=== PATIENT | male | born 1965 | race Caucasian/White ===

== ENCOUNTER 2021-11-15 13:24 | Inpatient (IN) | payer BC ==
[~2021-11-15] VITALS: Ht 170.2 cm; Wt 74.8 kg
[2021-11-15 13:24] VITALS: BP_SYST 212
[2021-11-15] MEDS ORDERED: MORPHINE 4 MG INJ. 4 MG/ML VIAL IVP ONE (14:15)
[2021-11-15] MEDS ORDERED: ASPIRIN 81 MG TAB.CHEW PO ONE (14:15)
[2021-11-15] MEDS ORDERED: ONDANSETRON HCL 4 MG/2 ML VIAL IVP ONE (14:15)
[2021-11-15] MEDS ORDERED: NITROGLYCERIN 1 INCH (GM) OINT. TD ONE (14:15)
[2021-11-15 14:34] LABS: BASOPHILS % (AUTO) 0.3 % (0.0-2.0); HEMATOCRIT 47.8 % (36-54); HEMOGLOBIN 16.6 g/dL (14.0-18.0); LYMPHOCYTES # (AUTO) 2.4 K/uL (1.0-5.5); LYMPHOCYTES % (AUTO) 14.6 % (20.5-51.5); MEAN CORPUSCULAR HEMOGLOBIN 31 pg (27-31); MEAN CORPUSCULAR HGB CONC 35 % (32-36); MEAN CORPUSCULAR VOLUME 90 fL (79.0-98.0); MONOCYTES # (AUTO) 1.6 K/uL (0.0-1.0); MONOCYTES % (AUTO) 9.8 % (1.7-9.3); NEUTROPHILS # (AUTO) 12.3 K/uL (1.8-7.7); NEUTROPHILS % (AUTO) 75.3 % (40.0-70.0); PLATELET COUNT (AUTO) 304 K/uL (130-430); RED BLOOD CELL COUNT(AUTO) 5.33 MIL/uL (4.2-6.2); RED CELL DISTRIBUTION WIDTH 13.3 % (9.0-15.0); WHITE BLOOD COUNT (AUTO) 16.4 K/uL (4.8-10.8)
[2021-11-15 14:43] LABS: ANION GAP 12 (5-15); CALCIUM 9.4 mg/dL (8.4-11.0); CHLORIDE 94 mmol/L (98-107); CREATININE 1.14 mg/dL (0.55-1.30); GLUCOSE 312 mg/dL (70-99); POTASSIUM 3.9 mmol/L (3.5-5.1); UREA NITROGEN, BLOOD 17 mg/dL (8-21)
[2021-11-15 14:45] LABS: GFR AFRICAN AMERICAN 86 mL/min (>90)
[2021-11-15 14:56] LABS: ALANINE AMINOTRANSFERASE 31 U/L (12-78); ALBUMIN 3.7 g/dL (3.4-4.8); ASPARTATE AMINOTRANSFERASE 18 U/L (10-37); TOTAL BILIRUBIN 1.5 mg/dL (0.0-1.0)
[2021-11-15] MEDS ORDERED: NACL 0.9% 1,000 ML IV ONE (16:30)
[2021-11-15] MEDS ORDERED: cloNIDine HCL 0.1 MG TABLET PO PRN (17:30)
[2021-11-15] MEDS ORDERED: PANTOPRAZOLE SODIUM 40 MG TAB PO ONE (17:30)
[2021-11-15] MEDS ORDERED: DEXTROSE 50% JECT 50 ML DISP.SYRIN IVP PRN (17:30)
[2021-11-15] MEDS ORDERED: IPRATROPIUM/ALBUTEROL SULFATE 3 ML AMPUL.NEB (DUONEB) INH PRN (17:30)
[2021-11-15 17:31] VITALS: BP_SYST 125
[2021-11-15] MEDS: NACL 0.9% 1,000 ML IV SCH (18:30)
[2021-11-15] MEDS: LACTOBACILLUS RHAMNOSUS GG 1 CAP CAPSULE PO SCH (23:21)
[2021-11-15] MEDS: INSULIN REGULAR, HUMAN 100 UNITS/ML, 3 ML VIAL (humuLIN R) SUBCUT PRN (23:36)
[2021-11-16] MEDS: ACETAMINOPHEN 325 MG TABLET PO PRN ×3 (01:00→21:27)
[2021-11-16] MEDS: NACL 0.9% 1,000 ML IV SCH ×3 (06:16→21:30)
[2021-11-16 06:25] LABS: CALCIUM 8.1 mg/dL (8.4-11.0); CREATININE 1.04 mg/dL (0.55-1.30); POTASSIUM 3.9 mmol/L (3.5-5.1)
[2021-11-16 06:49] LABS: ALBUMIN 2.6 g/dL (3.4-4.8); TOTAL BILIRUBIN 1.2 mg/dL (0.0-1.0)
[2021-11-16 06:58] LABS: BASOPHILS % (AUTO) 0.1 % (0.0-2.0); HEMATOCRIT 40.2 % (36-54); HEMOGLOBIN 14.3 g/dL (14.0-18.0); LYMPHOCYTES # (AUTO) 0.9 K/uL (1.0-5.5); LYMPHOCYTES % (AUTO) 4.5 % (20.5-51.5); MEAN CORPUSCULAR HEMOGLOBIN 32 pg (27-31); MEAN CORPUSCULAR HGB CONC 35 % (32-36); MEAN CORPUSCULAR VOLUME 89 fL (79.0-98.0); MONOCYTES # (AUTO) 2.2 K/uL (0.0-1.0); MONOCYTES % (AUTO) 10.2 % (1.7-9.3); NEUTROPHILS # (AUTO) 18.1 K/uL (1.8-7.7); NEUTROPHILS % (AUTO) 85.2 % (40.0-70.0); PLATELET COUNT (AUTO) 240 K/uL (130-430); RED CELL DISTRIBUTION WIDTH 12.9 % (9.0-15.0); WHITE BLOOD COUNT (AUTO) 21.2 K/uL (4.8-10.8)
[2021-11-16 08:00] VITALS: BP_SYST 129
[2021-11-16] MEDS: ASPIRIN 81 MG TABLET(ECOTRIN) PO SCH (09:38)
[2021-11-16] MEDS: PANTOPRAZOLE SODIUM 40 MG TAB PO SCH (09:39)
[2021-11-16] MEDS: LACTOBACILLUS RHAMNOSUS GG 1 CAP CAPSULE PO SCH ×2 (09:40→21:13)
[2021-11-16] MEDS: INSULIN REGULAR, HUMAN 100 UNITS/ML, 3 ML VIAL (humuLIN R) SUBCUT PRN ×4 (09:44→21:30)
[2021-11-16 11:42] VITALS: BP_SYST 131
[2021-11-16 14:35] LABS: BILIRUBIN,URINE NEGATIVE (NEGATIVE); BLOOD, URINE NEGATIVE (NEGATIVE); CLARITY/URINE CLEAR (CLEAR); GLUCOSE,URINE 2+ (NEGATIVE); KETONES,URINE 1+ (NEGATIVE); LEUKOCYTE ESTERASE ,URINE NEGATIVE (NEGATIVE); NITRITE, URINE NEGATIVE (NEGATIVE); PROTEIN URINE 1+ (NEGATIVE)
[2021-11-16 14:42] LABS: COLOR,URINE AMBER (YELLOW)
[2021-11-16 14:43] LABS: BACTERIA,URINE FEW /HPF (None Seen); HYALINE CASTS, URINE 0-10 /LPF (None Seen); MUCUS,URINE 2+ /LPF (None Seen); RBC,URINE NONE SEEN /HPF (0-3); WBC,URINE 0-3 /HPF (0-3)
[2021-11-16 15:34] VITALS: BP_SYST 130
[2021-11-16] MEDS ORDERED: cefTRIAXone 1 GM IVPB PREMIX 50 ML IV SCH (19:00)
[2021-11-16 20:00] VITALS: BP_SYST 144
[2021-11-16] MEDS: LORazepam 1 MG TABLET PO PRN (21:26)
[2021-11-17 01:00] VITALS: BP_SYST 137
[2021-11-17] MEDS: INSULIN REGULAR, HUMAN 100 UNITS/ML, 3 ML VIAL (humuLIN R) SUBCUT PRN ×4 (06:48→21:33)
[2021-11-17] MEDS: NACL 0.9% 1,000 ML IV SCH (06:51)
[2021-11-17 06:55] LABS: HEMATOCRIT 41.7 % (36-54); HEMOGLOBIN 14.5 g/dL (14.0-18.0); MEAN CORPUSCULAR HEMOGLOBIN 31 pg (27-31); MEAN CORPUSCULAR HGB CONC 35 % (32-36); MEAN CORPUSCULAR VOLUME 90 fL (79.0-98.0); PLATELET COUNT (AUTO) 254 K/uL (130-430); RED BLOOD CELL COUNT(AUTO) 4.62 MIL/uL (4.2-6.2); RED CELL DISTRIBUTION WIDTH 13.2 % (9.0-15.0); WHITE BLOOD COUNT (AUTO) 23.9 K/uL (4.8-10.8)
[2021-11-17 07:43] LABS: LYMPHOCYTES % (MANUAL) 4 % (20-46)
[2021-11-17 07:44] LABS: ATYPICAL LYMPHOCYTES % 9 % (0-0); BASOPHILS % (MANUAL) 0 % (0-2); EOSINOPHILS % (MANUAL) 0 % (0-7); MONOCYTES % (MANUAL) 0 % (0-11)
[2021-11-17 07:46] LABS: ALBUMIN 2.2 g/dL (3.4-4.8); CALCIUM 8.5 mg/dL (8.4-11.0); CREATININE 0.91 mg/dL (0.55-1.30); POTASSIUM 3.4 mmol/L (3.5-5.1); TOTAL BILIRUBIN 0.7 mg/dL (0.0-1.0)
[2021-11-17 08:00] VITALS: BP_SYST 160
[2021-11-17] MEDS: LACTOBACILLUS RHAMNOSUS GG 1 CAP CAPSULE PO SCH ×2 (09:15→21:20)
[2021-11-17] MEDS: ASPIRIN 81 MG TABLET(ECOTRIN) PO SCH (09:15)
[2021-11-17] MEDS: LORazepam 1 MG TABLET PO PRN (09:16)
[2021-11-17] MEDS: PANTOPRAZOLE SODIUM 40 MG TAB PO SCH (09:16)
[2021-11-17] MEDS: ACETAMINOPHEN 325 MG TABLET PO PRN (09:17)
[2021-11-17 11:25] VITALS: BP_SYST 133
[2021-11-17] MEDS: PIPERACILLIN/TAZO 4.5GM/DEX-IS 100 ML IV SCH ×2 (14:40→21:19)
[2021-11-17] MEDS: VANCOMYCIN HCL 1,250 MG in NS 250 ML IV SCH (15:00)
[2021-11-17] MEDS: METHYLPREDNISOLONE SOD SUCC 40 MG/ML VIAL IVP SCH ×2 (15:19→21:21)
[2021-11-17 15:24] VITALS: BP_SYST 149
[2021-11-17] MEDS ORDERED: POTASSIUM CHLORIDE 20 MEQ TAB.PRT.SR PO ONE (17:00)
[2021-11-17] MEDS ORDERED: ASCORBIC ACID 500 MG TABLET PO ONE (17:15)
[2021-11-17] MEDS ORDERED: MULTIVITS,CA,MINERALS/IRON/FA 1 TABLET PO ONE (17:15)
[2021-11-17] MEDS ORDERED: CHOLECALCIFEROL (VITAMIN D3) 5,000 UNIT TABLET PO ONE (17:15)
[2021-11-17] MEDS ORDERED: MAGNESIUM OXIDE 400 MG TABLET PO ONE (17:15)
[2021-11-17] MEDS ORDERED: IPRATROPIUM/ALBUTEROL SULFATE 3 ML AMPUL.NEB (DUONEB) INH SCH (17:30)
[2021-11-17 20:00] VITALS: BP_SYST 136
[2021-11-17] MEDS: PROMETHAZINE-DM 6.25 MG-15 MG/5 ML UDC PO PRN (21:19)
[2021-11-17] MEDS: ASCORBIC ACID 500 MG TABLET PO SCH (21:20)
[2021-11-17] MEDS: MAGNESIUM OXIDE 400 MG TABLET PO SCH (21:20)
[2021-11-17] MEDS: TEMAZEPAM 15 MG CAPSULE PO PRN (21:21)
[2021-11-18 01:00] VITALS: BP_SYST 138
[2021-11-18] MEDS ORDERED: VANCOMYCIN HCL 500 MG/VIAL IV ONE (02:23)
[2021-11-18] MEDS ORDERED: VANCOMYCIN HCL 1000 MG/VIAL IV ONE (02:23)
[2021-11-18] MEDS: NACL 0.9% 1,000 ML IV SCH ×2 (02:50→17:52)
[2021-11-18] MEDS: VANCOMYCIN HCL 1,250 MG in NS 250 ML IV SCH (02:51)
[2021-11-18] MEDS: METHYLPREDNISOLONE SOD SUCC 40 MG/ML VIAL IVP SCH ×3 (05:46→21:24)
[2021-11-18] MEDS: PIPERACILLIN/TAZO 4.5GM/DEX-IS 100 ML IV SCH ×3 (05:49→21:24)
[2021-11-18] MEDS: INSULIN REGULAR, HUMAN 100 UNITS/ML, 3 ML VIAL (humuLIN R) SUBCUT PRN ×4 (05:59→20:59)
[2021-11-18 08:00] VITALS: BP_SYST 154
[2021-11-18] MEDS: ASCORBIC ACID 500 MG TABLET PO SCH ×2 (08:18→20:53)
[2021-11-18] MEDS: PANTOPRAZOLE SODIUM 40 MG TAB PO SCH (08:19)
[2021-11-18] MEDS: POTASSIUM CHLORIDE 20 MEQ TAB.PRT.SR PO SCH (08:19)
[2021-11-18] MEDS: MULTIVITS,CA,MINERALS/IRON/FA 1 TABLET PO SCH (08:19)
[2021-11-18] MEDS: LACTOBACILLUS RHAMNOSUS GG 1 CAP CAPSULE PO SCH ×2 (08:19→20:53)
[2021-11-18] MEDS: MAGNESIUM OXIDE 400 MG TABLET PO SCH ×2 (08:20→20:53)
[2021-11-18] MEDS: ASPIRIN 81 MG TABLET(ECOTRIN) PO SCH (08:20)
[2021-11-18] MEDS: CHOLECALCIFEROL (VITAMIN D3) 5,000 UNIT TABLET PO SCH (08:20)
[2021-11-18] MEDS ORDERED: THIAMINE HCL 100 MG TABLET GT SCH (09:00)
[2021-11-18 11:30] VITALS: BP_SYST 137
[2021-11-18 15:28] VITALS: BP_SYST 142
[2021-11-18 16:01] LABS: HEMOGLOBIN 14.6 g/dL (14.0-18.0)
[2021-11-18 16:09] LABS: HEMATOCRIT 42.7 % (36-54); MEAN CORPUSCULAR HEMOGLOBIN 31 pg (27-31); MEAN CORPUSCULAR HGB CONC 34 % (32-36); MEAN CORPUSCULAR VOLUME 90 fL (79.0-98.0); PLATELET COUNT (AUTO) 321 K/uL (130-430); RED BLOOD CELL COUNT(AUTO) 4.77 MIL/uL (4.2-6.2); RED CELL DISTRIBUTION WIDTH 13.2 % (9.0-15.0)
[2021-11-18 16:10] VITALS: BP_SYST 142
[2021-11-18 16:16] LABS: WHITE BLOOD COUNT (AUTO) 29.2 K/uL (4.8-10.8)
[2021-11-18] MEDS ORDERED: GLIP5TAB26 PO (17:06)
[2021-11-18] MEDS ORDERED: METF-518 PO (17:06)
[2021-11-18 17:21] LABS: LYMPHOCYTES % (MANUAL) 3 % (20-46); MONOCYTES % (MANUAL) 1 % (0-11)
[2021-11-18 17:57] LABS: ERYTHROCYTE SEDIMENTATION RATE 71 MM/HR (0-15)
[2021-11-18 20:00] VITALS: BP_SYST 154
[2021-11-18] MEDS: LORazepam 1 MG TABLET PO PRN (21:32)
[2021-11-18] MEDS: ACETAMINOPHEN 325 MG TABLET PO PRN (21:33)
[2021-11-19] VITALS: BP_SYST 130
[2021-11-19] MEDS: NACL 0.9% 1,000 ML IV SCH (05:53)
[2021-11-19] MEDS: METHYLPREDNISOLONE SOD SUCC 40 MG/ML VIAL IVP SCH (05:54)
[2021-11-19] MEDS: PIPERACILLIN/TAZO 4.5GM/DEX-IS 100 ML IV SCH ×3 (05:58→20:20)
[2021-11-19] MEDS: INSULIN REGULAR, HUMAN 100 UNITS/ML, 3 ML VIAL (humuLIN R) SUBCUT PRN ×4 (06:03→21:14)
[2021-11-19 07:16] LABS: BASOPHILS # (AUTO) 0.1 K/uL (0.0-0.2); BASOPHILS % (AUTO) 0.3 % (0.0-2.0); EOSINOPHILS % (AUTO) 0.1 % (0.0-4.0); HEMATOCRIT 42.5 % (36-54); HEMOGLOBIN 14.4 g/dL (14.0-18.0); LYMPHOCYTES % (AUTO) 3.3 % (20.5-51.5); MEAN CORPUSCULAR HEMOGLOBIN 31 pg (27-31); MEAN CORPUSCULAR HGB CONC 34 % (32-36); MEAN CORPUSCULAR VOLUME 90 fL (79.0-98.0); MONOCYTES # (AUTO) 2.2 K/uL (0.0-1.0); MONOCYTES % (AUTO) 7.3 % (1.7-9.3); NEUTROPHILS # (AUTO) 26.5 K/uL (1.8-7.7); PLATELET COUNT (AUTO) 299 K/uL (130-430); RED BLOOD CELL COUNT(AUTO) 4.72 MIL/uL (4.2-6.2); RED CELL DISTRIBUTION WIDTH 13.2 % (9.0-15.0); WHITE BLOOD COUNT (AUTO) 29.8 K/uL (4.8-10.8)
[2021-11-19 08:00] VITALS: BP_SYST 142
[2021-11-19 08:11] LABS: CALCIUM 8.6 mg/dL (8.4-11.0); CREATININE 0.8 mg/dL (0.55-1.30); POTASSIUM 4.6 mmol/L (3.5-5.1)
[2021-11-19] MEDS: ASCORBIC ACID 500 MG TABLET PO SCH ×2 (08:49→20:19)
[2021-11-19] MEDS: ASPIRIN 81 MG TABLET(ECOTRIN) PO SCH (08:50)
[2021-11-19] MEDS: CHOLECALCIFEROL (VITAMIN D3) 5,000 UNIT TABLET PO SCH (08:50)
[2021-11-19] MEDS: PANTOPRAZOLE SODIUM 40 MG TAB PO SCH (08:50)
[2021-11-19] MEDS: MULTIVITS,CA,MINERALS/IRON/FA 1 TABLET PO SCH (08:50)
[2021-11-19] MEDS: LACTOBACILLUS RHAMNOSUS GG 1 CAP CAPSULE PO SCH ×2 (08:50→20:19)
[2021-11-19] MEDS: MAGNESIUM OXIDE 400 MG TABLET PO SCH ×2 (08:50→20:19)
[2021-11-19] MEDS: FOLIC ACID 1 MG TABLET PO SCH (08:50)
[2021-11-19] MEDS: THIAMINE HCL 100 MG TABLET PO SCH (08:50)
[2021-11-19] MEDS: glipiZIDE XL 5 MG TAB ( GLUCOTROL XL) PO SCH (08:50)
[2021-11-19] MEDS: POTASSIUM CHLORIDE 20 MEQ TAB.PRT.SR PO SCH (08:51)
[2021-11-19] MEDS: LOSARTAN POTASSIUM 25 MG TABLET PO SCH (08:51)
[2021-11-19 11:24] VITALS: BP_SYST 140
[2021-11-19 15:34] VITALS: BP_SYST 136
[2021-11-19 20:00] VITALS: BP_SYST 133
[2021-11-20] VITALS: BP_SYST 139
[2021-11-20] MEDS: PIPERACILLIN/TAZO 4.5GM/DEX-IS 100 ML IV SCH ×3 (05:04→19:53)
[2021-11-20 07:39] LABS: BASOPHILS % (AUTO) 0.1 % (0.0-2.0); EOSINOPHILS % (AUTO) 0.1 % (0.0-4.0); HEMOGLOBIN 14.8 g/dL (14.0-18.0); LYMPHOCYTES # (AUTO) 1.5 K/uL (1.0-5.5); MEAN CORPUSCULAR HEMOGLOBIN 31 pg (27-31); MEAN CORPUSCULAR HGB CONC 34 % (32-36); MEAN CORPUSCULAR VOLUME 90 fL (79.0-98.0); NEUTROPHILS # (AUTO) 21.7 K/uL (1.8-7.7); PLATELET COUNT (AUTO) 319 K/uL (130-430); RED BLOOD CELL COUNT(AUTO) 4.77 MIL/uL (4.2-6.2); RED CELL DISTRIBUTION WIDTH 13.3 % (9.0-15.0); WHITE BLOOD COUNT (AUTO) 25.3 K/uL (4.8-10.8)
[2021-11-20 09:07] VITALS: BP_SYST 151
[2021-11-20 09:21] LABS: NEUTROPHILS % (AUTO) 85.8 % (40.0-70.0)
[2021-11-20] MEDS: NACL 0.9% 1,000 ML IV SCH (10:02)
[2021-11-20] MEDS: POTASSIUM CHLORIDE 20 MEQ TAB.PRT.SR PO SCH (11:12)
[2021-11-20] MEDS: MAGNESIUM OXIDE 400 MG TABLET PO SCH ×2 (11:14→19:55)
[2021-11-20] MEDS: LACTOBACILLUS RHAMNOSUS GG 1 CAP CAPSULE PO SCH ×2 (11:17→19:55)
[2021-11-20] MEDS: FOLIC ACID 1 MG TABLET PO SCH (11:19)
[2021-11-20] MEDS: THIAMINE HCL 100 MG TABLET PO SCH (11:19)
[2021-11-20] MEDS: glipiZIDE XL 5 MG TAB ( GLUCOTROL XL) PO SCH (11:20)
[2021-11-20] MEDS: MULTIVITS,CA,MINERALS/IRON/FA 1 TABLET PO SCH (11:20)
[2021-11-20] MEDS: CHOLECALCIFEROL (VITAMIN D3) 5,000 UNIT TABLET PO SCH (11:20)
[2021-11-20] MEDS: PANTOPRAZOLE SODIUM 40 MG TAB PO SCH (11:21)
[2021-11-20] MEDS: LOSARTAN POTASSIUM 25 MG TABLET PO SCH (11:21)
[2021-11-20] MEDS: ASCORBIC ACID 500 MG TABLET PO SCH ×2 (11:21→19:54)
[2021-11-20] MEDS: ASPIRIN 81 MG TABLET(ECOTRIN) PO SCH (11:21)
[2021-11-20 11:30] VITALS: BP_SYST 136
[2021-11-20 13:04] LABS: POTASSIUM 4.8 mmol/L (3.5-5.1)
[2021-11-20 13:05] LABS: CALCIUM 8.5 mg/dL (8.4-11.0); CREATININE 0.7 mg/dL (0.55-1.30)
[2021-11-20] MEDS: INSULIN REGULAR, HUMAN 100 UNITS/ML, 3 ML VIAL (humuLIN R) SUBCUT PRN ×3 (14:48→21:03)
[2021-11-20 15:58] VITALS: BP_SYST 153
[2021-11-20] MEDS: TEMAZEPAM 15 MG CAPSULE PO PRN (19:54)
[2021-11-20] MEDS: ACETAMINOPHEN 325 MG TABLET PO PRN (19:55)
[2021-11-20 20:00] VITALS: BP_SYST 141
[2021-11-21] VITALS: BP_SYST 138
[2021-11-21] MEDS: PIPERACILLIN/TAZO 4.5GM/DEX-IS 100 ML IV SCH ×3 (04:44→21:44)
[2021-11-21 08:00] VITALS: BP_SYST 146
[2021-11-21] MEDS: PANTOPRAZOLE SODIUM 40 MG TAB PO SCH (08:56)
[2021-11-21] MEDS: glipiZIDE XL 5 MG TAB ( GLUCOTROL XL) PO SCH (08:56)
[2021-11-21] MEDS: LOSARTAN POTASSIUM 25 MG TABLET PO SCH (08:56)
[2021-11-21] MEDS: MAGNESIUM OXIDE 400 MG TABLET PO SCH ×2 (08:57→21:39)
[2021-11-21] MEDS: LACTOBACILLUS RHAMNOSUS GG 1 CAP CAPSULE PO SCH ×2 (08:57→21:38)
[2021-11-21] MEDS: ASPIRIN 81 MG TABLET(ECOTRIN) PO SCH (08:57)
[2021-11-21] MEDS: THIAMINE HCL 100 MG TABLET PO SCH (08:57)
[2021-11-21] MEDS: FOLIC ACID 1 MG TABLET PO SCH (08:57)
[2021-11-21] MEDS: CHOLECALCIFEROL (VITAMIN D3) 5,000 UNIT TABLET PO SCH (08:57)
[2021-11-21] MEDS: MULTIVITS,CA,MINERALS/IRON/FA 1 TABLET PO SCH (08:57)
[2021-11-21] MEDS: ASCORBIC ACID 500 MG TABLET PO SCH ×2 (08:57→21:38)
[2021-11-21 08:58] LABS: CREATININE 0.87 mg/dL (0.55-1.30); POTASSIUM 4.4 mmol/L (3.5-5.1)
[2021-11-21 09:35] VITALS: BP_SYST 146
[2021-11-21 12:00] VITALS: BP_SYST 140
[2021-11-21] MEDS: PROMETHAZINE-DM 6.25 MG-15 MG/5 ML UDC PO PRN (12:18)
[2021-11-21] MEDS: NACL 0.9% 1,000 ML IV SCH (12:18)
[2021-11-21] MEDS: INSULIN REGULAR, HUMAN 100 UNITS/ML, 3 ML VIAL (humuLIN R) SUBCUT PRN ×3 (12:40→22:01)
[2021-11-21 14:23] LABS: HEMATOCRIT 46.1 % (36-54); HEMOGLOBIN 15.8 g/dL (14.0-18.0); MEAN CORPUSCULAR HEMOGLOBIN 31 pg (27-31); MEAN CORPUSCULAR HGB CONC 34 % (32-36); MEAN CORPUSCULAR VOLUME 91 fL (79.0-98.0); PLATELET COUNT (AUTO) 337 K/uL (130-430); RED BLOOD CELL COUNT(AUTO) 5.07 MIL/uL (4.2-6.2); RED CELL DISTRIBUTION WIDTH 13.8 % (9.0-15.0); WHITE BLOOD COUNT (AUTO) 22.8 K/uL (4.8-10.8)
[2021-11-21 15:05] LABS: BAND % (MANUAL) 11 % (0-6); BASOPHILS % (MANUAL) 0 % (0-2); EOSINOPHILS % (MANUAL) 0 % (0-7); LYMPHOCYTES % (MANUAL) 10 % (20-46); MONOCYTES % (MANUAL) 4 % (0-11); MYELOCYTES % 2 % (0-0)
[2021-11-21 16:00] VITALS: BP_SYST 132
[2021-11-21 20:00] VITALS: BP_SYST 123
[2021-11-22] VITALS: BP_SYST 137
[2021-11-22] MEDS: PIPERACILLIN/TAZO 4.5GM/DEX-IS 100 ML IV SCH ×3 (07:10→21:06)
[2021-11-22] MEDS: INSULIN REGULAR, HUMAN 100 UNITS/ML, 3 ML VIAL (humuLIN R) SUBCUT PRN ×4 (07:23→21:06)
[2021-11-22 07:58] LABS: BASOPHILS # (AUTO) 0.1 K/uL (0.0-0.2); BASOPHILS % (AUTO) 0.2 % (0.0-2.0); EOSINOPHILS # (AUTO) 0.1 K/uL (0.0-0.4); EOSINOPHILS % (AUTO) 0.3 % (0.0-4.0); HEMOGLOBIN 14.4 g/dL (14.0-18.0); LYMPHOCYTES # (AUTO) 1.6 K/uL (1.0-5.5); LYMPHOCYTES % (AUTO) 7.1 % (20.5-51.5); MEAN CORPUSCULAR HEMOGLOBIN 31 pg (27-31); MEAN CORPUSCULAR HGB CONC 34 % (32-36); MEAN CORPUSCULAR VOLUME 90 fL (79.0-98.0); MONOCYTES # (AUTO) 1.3 K/uL (0.0-1.0); NEUTROPHILS # (AUTO) 19.3 K/uL (1.8-7.7); NEUTROPHILS % (AUTO) 86.4 % (40.0-70.0); PLATELET COUNT (AUTO) 314 K/uL (130-430); RED BLOOD CELL COUNT(AUTO) 4.66 MIL/uL (4.2-6.2); RED CELL DISTRIBUTION WIDTH 13.9 % (9.0-15.0); WHITE BLOOD COUNT (AUTO) 22.3 K/uL (4.8-10.8)
[2021-11-22 08:13] VITALS: BP_SYST 129
[2021-11-22] MEDS: PROMETHAZINE-DM 6.25 MG-15 MG/5 ML UDC PO PRN ×2 (08:17→20:58)
[2021-11-22 08:29] LABS: CALCIUM 8.1 mg/dL (8.4-11.0); CREATININE 0.79 mg/dL (0.55-1.30); POTASSIUM 4.5 mmol/L (3.5-5.1)
[2021-11-22] MEDS: PANTOPRAZOLE SODIUM 40 MG TAB PO SCH (08:49)
[2021-11-22] MEDS: FOLIC ACID 1 MG TABLET PO SCH (08:49)
[2021-11-22] MEDS: glipiZIDE XL 5 MG TAB ( GLUCOTROL XL) PO SCH (08:50)
[2021-11-22] MEDS: THIAMINE HCL 100 MG TABLET PO SCH (08:50)
[2021-11-22] MEDS: ASCORBIC ACID 500 MG TABLET PO SCH ×2 (08:51→20:59)
[2021-11-22] MEDS: ASPIRIN 81 MG TABLET(ECOTRIN) PO SCH (08:52)
[2021-11-22] MEDS: CHOLECALCIFEROL (VITAMIN D3) 5,000 UNIT TABLET PO SCH (08:53)
[2021-11-22] MEDS: MULTIVITS,CA,MINERALS/IRON/FA 1 TABLET PO SCH (08:54)
[2021-11-22] MEDS: LOSARTAN POTASSIUM 25 MG TABLET PO SCH (08:54)
[2021-11-22] MEDS: LACTOBACILLUS RHAMNOSUS GG 1 CAP CAPSULE PO SCH ×2 (08:55→20:59)
[2021-11-22] MEDS: MAGNESIUM OXIDE 400 MG TABLET PO SCH ×2 (08:58→21:00)
[2021-11-22 11:58] VITALS: BP_SYST 130
[2021-11-22] MEDS: AZITHROMYCIN 500 MG in NS 250 ML IV SCH (15:36)
[2021-11-22 16:00] VITALS: BP_SYST 127
[2021-11-22 20:00] VITALS: BP_SYST 145
[2021-11-22] MEDS: LORazepam 1 MG TABLET PO PRN (21:01)
[2021-11-23 00:30] VITALS: BP_SYST 130
[2021-11-23] MEDS: PIPERACILLIN/TAZO 4.5GM/DEX-IS 100 ML IV SCH ×3 (05:58→21:25)
[2021-11-23] MEDS: INSULIN REGULAR, HUMAN 100 UNITS/ML, 3 ML VIAL (humuLIN R) SUBCUT PRN ×4 (06:05→21:27)
[2021-11-23 07:46] LABS: BASOPHILS % (AUTO) 0.2 % (0.0-2.0); EOSINOPHILS # (AUTO) 0.1 K/uL (0.0-0.4); EOSINOPHILS % (AUTO) 0.7 % (0.0-4.0); HEMATOCRIT 38.7 % (36-54); HEMOGLOBIN 13.1 g/dL (14.0-18.0); LYMPHOCYTES # (AUTO) 1.5 K/uL (1.0-5.5); LYMPHOCYTES % (AUTO) 7.7 % (20.5-51.5); MEAN CORPUSCULAR HEMOGLOBIN 31 pg (27-31); MEAN CORPUSCULAR HGB CONC 34 % (32-36); MEAN CORPUSCULAR VOLUME 90 fL (79.0-98.0); MONOCYTES # (AUTO) 1.2 K/uL (0.0-1.0); MONOCYTES % (AUTO) 6.2 % (1.7-9.3); NEUTROPHILS # (AUTO) 17.3 K/uL (1.8-7.7); PLATELET COUNT (AUTO) 295 K/uL (130-430); RED BLOOD CELL COUNT(AUTO) 4.31 MIL/uL (4.2-6.2); RED CELL DISTRIBUTION WIDTH 13.8 % (9.0-15.0); WHITE BLOOD COUNT (AUTO) 20.2 K/uL (4.8-10.8)
[2021-11-23 08:00] VITALS: BP_SYST 115
[2021-11-23 08:12] LABS: ALBUMIN 1.6 g/dL (3.4-4.8); CALCIUM 7.9 mg/dL (8.4-11.0); CREATININE 0.73 mg/dL (0.55-1.30); TOTAL BILIRUBIN 0.4 mg/dL (0.0-1.0)
[2021-11-23] MEDS: THIAMINE HCL 100 MG TABLET PO SCH (08:29)
[2021-11-23] MEDS: FOLIC ACID 1 MG TABLET PO SCH (08:29)
[2021-11-23] MEDS: glipiZIDE XL 5 MG TAB ( GLUCOTROL XL) PO SCH (08:29)
[2021-11-23] MEDS: CHOLECALCIFEROL (VITAMIN D3) 5,000 UNIT TABLET PO SCH (08:29)
[2021-11-23] MEDS: LACTOBACILLUS RHAMNOSUS GG 1 CAP CAPSULE PO SCH ×2 (08:29→21:21)
[2021-11-23] MEDS: PANTOPRAZOLE SODIUM 40 MG TAB PO SCH (08:30)
[2021-11-23] MEDS: MAGNESIUM OXIDE 400 MG TABLET PO SCH ×2 (08:30→21:21)
[2021-11-23] MEDS: ASPIRIN 81 MG TABLET(ECOTRIN) PO SCH (08:30)
[2021-11-23] MEDS: MULTIVITS,CA,MINERALS/IRON/FA 1 TABLET PO SCH (08:30)
[2021-11-23] MEDS: ASCORBIC ACID 500 MG TABLET PO SCH ×2 (08:30→21:21)
[2021-11-23 08:44] LABS: NEUTROPHILS % (AUTO) 85.2 % (40.0-70.0)
[2021-11-23] MEDS: LINEZOLID 300 ML IV SCH ×2 (10:30→21:19)
[2021-11-23 10:57] LABS: COCCIDIOIDES AB COMPLEMENT FIX 0.1 (NEGATIVE)
[2021-11-23 11:35] VITALS: BP_SYST 133
[2021-11-23] MEDS: LOSARTAN POTASSIUM 25 MG TABLET PO SCH (11:59)
[2021-11-23] MEDS: AZITHROMYCIN 500 MG in NS 250 ML IV SCH (14:28)
[2021-11-23 16:48] VITALS: BP_SYST 146
[2021-11-23 20:00] VITALS: BP_SYST 140
[2021-11-23] MEDS: TEMAZEPAM 15 MG CAPSULE PO PRN (21:20)
[2021-11-24 01:00] VITALS: BP_SYST 131
[2021-11-24] MEDS: PIPERACILLIN/TAZO 4.5GM/DEX-IS 100 ML IV SCH (06:22)
[2021-11-24] MEDS: INSULIN REGULAR, HUMAN 100 UNITS/ML, 3 ML VIAL (humuLIN R) SUBCUT PRN ×4 (06:29→22:04)
[2021-11-24 06:46] LABS: BASOPHILS % (AUTO) 0.1 % (0.0-2.0); EOSINOPHILS # (AUTO) 0.2 K/uL (0.0-0.4); HEMATOCRIT 37.7 % (36-54); HEMOGLOBIN 13.1 g/dL (14.0-18.0); LYMPHOCYTES # (AUTO) 1.6 K/uL (1.0-5.5); LYMPHOCYTES % (AUTO) 9.2 % (20.5-51.5); MEAN CORPUSCULAR HEMOGLOBIN 31 pg (27-31); MEAN CORPUSCULAR HGB CONC 35 % (32-36); MEAN CORPUSCULAR VOLUME 89 fL (79.0-98.0); MONOCYTES # (AUTO) 1.3 K/uL (0.0-1.0); MONOCYTES % (AUTO) 7.4 % (1.7-9.3); NEUTROPHILS # (AUTO) 14.2 K/uL (1.8-7.7); NEUTROPHILS % (AUTO) 82.3 % (40.0-70.0); PLATELET COUNT (AUTO) 319 K/uL (130-430); RED BLOOD CELL COUNT(AUTO) 4.25 MIL/uL (4.2-6.2); RED CELL DISTRIBUTION WIDTH 13.5 % (9.0-15.0); WHITE BLOOD COUNT (AUTO) 17.2 K/uL (4.8-10.8)
[2021-11-24 07:04] LABS: CALCIUM 7.6 mg/dL (8.4-11.0); CREATININE 0.69 mg/dL (0.55-1.30); POTASSIUM 3.9 mmol/L (3.5-5.1)
[2021-11-24 08:05] VITALS: BP_SYST 131
[2021-11-24] MEDS: MAGNESIUM OXIDE 400 MG TABLET PO SCH ×2 (09:35→21:56)
[2021-11-24] MEDS: FOLIC ACID 1 MG TABLET PO SCH (09:35)
[2021-11-24] MEDS: MULTIVITS,CA,MINERALS/IRON/FA 1 TABLET PO SCH (09:35)
[2021-11-24] MEDS: THIAMINE HCL 100 MG TABLET PO SCH (09:36)
[2021-11-24] MEDS: CHOLECALCIFEROL (VITAMIN D3) 5,000 UNIT TABLET PO SCH (09:36)
[2021-11-24] MEDS: ASCORBIC ACID 500 MG TABLET PO SCH ×2 (09:36→21:55)
[2021-11-24] MEDS: LACTOBACILLUS RHAMNOSUS GG 1 CAP CAPSULE PO SCH ×2 (09:36→21:55)
[2021-11-24] MEDS: PANTOPRAZOLE SODIUM 40 MG TAB PO SCH (09:37)
[2021-11-24] MEDS: ASPIRIN 81 MG TABLET(ECOTRIN) PO SCH (09:37)
[2021-11-24] MEDS: glipiZIDE XL 5 MG TAB ( GLUCOTROL XL) PO SCH (09:37)
[2021-11-24] MEDS: LOSARTAN POTASSIUM 25 MG TABLET PO SCH (09:37)
[2021-11-24] MEDS: LINEZOLID 300 ML IV SCH ×2 (09:38→21:55)
[2021-11-24] MEDS: IPRATROPIUM/ALBUTEROL SULFATE 3 ML AMPUL.NEB (DUONEB) INH SCH ×4 (11:00→23:00)
[2021-11-24] MEDS: AZITHROMYCIN 500 MG in NS 250 ML IV SCH (15:00)
[2021-11-24 21:50] VITALS: BP_SYST 132
[2021-11-25 00:31] VITALS: BP_SYST 133
[2021-11-25] MEDS: IPRATROPIUM/ALBUTEROL SULFATE 3 ML AMPUL.NEB (DUONEB) INH SCH ×5 (03:00→19:44)
[2021-11-25] MEDS: INSULIN REGULAR, HUMAN 100 UNITS/ML, 3 ML VIAL (humuLIN R) SUBCUT PRN ×3 (06:52→20:46)
[2021-11-25 07:38] LABS: CALCIUM 7.9 mg/dL (8.4-11.0); CREATININE 0.59 mg/dL (0.55-1.30); POTASSIUM 4.2 mmol/L (3.5-5.1)
[2021-11-25 07:45] LABS: BASOPHILS # (AUTO) 0.1 K/uL (0.0-0.2); BASOPHILS % (AUTO) 0.5 % (0.0-2.0); EOSINOPHILS # (AUTO) 0.1 K/uL (0.0-0.4); EOSINOPHILS % (AUTO) 0.4 % (0.0-4.0); HEMOGLOBIN 13.3 g/dL (14.0-18.0); LYMPHOCYTES # (AUTO) 1.4 K/uL (1.0-5.5); MEAN CORPUSCULAR HEMOGLOBIN 30 pg (27-31); MEAN CORPUSCULAR HGB CONC 33 % (32-36); MEAN CORPUSCULAR VOLUME 90 fL (79.0-98.0); MONOCYTES # (AUTO) 1.3 K/uL (0.0-1.0); MONOCYTES % (AUTO) 7.6 % (1.7-9.3); NEUTROPHILS # (AUTO) 14.3 K/uL (1.8-7.7); NEUTROPHILS % (AUTO) 83.5 % (40.0-70.0); PLATELET COUNT (AUTO) 358 K/uL (130-430); RED BLOOD CELL COUNT(AUTO) 4.48 MIL/uL (4.2-6.2); RED CELL DISTRIBUTION WIDTH 13.5 % (9.0-15.0); WHITE BLOOD COUNT (AUTO) 17.1 K/uL (4.8-10.8)
[2021-11-25] MEDS: LACTOBACILLUS RHAMNOSUS GG 1 CAP CAPSULE PO SCH ×2 (08:55→20:40)
[2021-11-25] MEDS: ASPIRIN 81 MG TABLET(ECOTRIN) PO SCH (08:55)
[2021-11-25] MEDS: glipiZIDE XL 5 MG TAB ( GLUCOTROL XL) PO SCH (08:55)
[2021-11-25] MEDS: MULTIVITS,CA,MINERALS/IRON/FA 1 TABLET PO SCH (08:55)
[2021-11-25] MEDS: PANTOPRAZOLE SODIUM 40 MG TAB PO SCH (08:55)
[2021-11-25] MEDS: FOLIC ACID 1 MG TABLET PO SCH (08:56)
[2021-11-25] MEDS: THIAMINE HCL 100 MG TABLET PO SCH (08:56)
[2021-11-25] MEDS: ASCORBIC ACID 500 MG TABLET PO SCH ×2 (08:56→20:40)
[2021-11-25] MEDS: CHOLECALCIFEROL (VITAMIN D3) 5,000 UNIT TABLET PO SCH (08:56)
[2021-11-25] MEDS: LOSARTAN POTASSIUM 25 MG TABLET PO SCH (08:57)
[2021-11-25] MEDS: MAGNESIUM OXIDE 400 MG TABLET PO SCH ×2 (08:58→20:40)
[2021-11-25] MEDS: LINEZOLID 300 ML IV SCH ×2 (08:58→20:40)
[2021-11-25 09:30] LABS: ERYTHROCYTE SEDIMENTATION RATE 21 MM/HR (0-15)
[2021-11-25 11:33] VITALS: BP_SYST 146
[2021-11-25 11:37] VITALS: BP_SYST 153
[2021-11-25] MEDS: AZITHROMYCIN 500 MG in NS 250 ML IV SCH (15:00)
[2021-11-25 20:45] VITALS: BP_SYST 134
[2021-11-26] MEDS: IPRATROPIUM/ALBUTEROL SULFATE 3 ML AMPUL.NEB (DUONEB) INH SCH ×6 (00:07→19:00)
[2021-11-26 00:14] VITALS: BP_SYST 123
[2021-11-26] MEDS: INSULIN REGULAR, HUMAN 100 UNITS/ML, 3 ML VIAL (humuLIN R) SUBCUT PRN ×3 (06:51→17:56)
[2021-11-26 08:00] VITALS: BP_SYST 131
[2021-11-26] MEDS: glipiZIDE XL 5 MG TAB ( GLUCOTROL XL) PO SCH (10:20)
[2021-11-26] MEDS: FOLIC ACID 1 MG TABLET PO SCH (10:20)
[2021-11-26] MEDS: LOSARTAN POTASSIUM 25 MG TABLET PO SCH (10:20)
[2021-11-26] MEDS: PANTOPRAZOLE SODIUM 40 MG TAB PO SCH (10:20)
[2021-11-26] MEDS: CHOLECALCIFEROL (VITAMIN D3) 5,000 UNIT TABLET PO SCH (10:20)
[2021-11-26] MEDS: LACTOBACILLUS RHAMNOSUS GG 1 CAP CAPSULE PO SCH (10:20)
[2021-11-26] MEDS: THIAMINE HCL 100 MG TABLET PO SCH (10:21)
[2021-11-26] MEDS: ASCORBIC ACID 500 MG TABLET PO SCH (10:21)
[2021-11-26] MEDS: MAGNESIUM OXIDE 400 MG TABLET PO SCH (10:21)
[2021-11-26] MEDS: ASPIRIN 81 MG TABLET(ECOTRIN) PO SCH (10:56)
[2021-11-26] MEDS: MULTIVITS,CA,MINERALS/IRON/FA 1 TABLET PO SCH (10:56)
[2021-11-26] MEDS: LINEZOLID 300 ML IV SCH (11:42)
[2021-11-26] MEDS ORDERED: glipiZIDE XL 5 MG TAB ( GLUCOTROL XL) PO SCH (17:00)
[2021-11-26] MEDS: AZITHROMYCIN 500 MG in NS 250 ML IV SCH (17:54)
[2021-11-26 18:16] VITALS: BP_SYST 131
== END 2021-11-26 23:26 | disposition short-term general hospital (02) | DRG 871 ==
LOC: SED 13:24 → STU 16:24 → SMU 11-22 22:35
PROVIDERS: ADMIT Internal Medicine; ATTEND Internal Medicine
DX: A41.9 Sepsis, unspecified organism (principal); J15.9 Unspecified bacterial pneumonia; J96.01 Acute respiratory failure with hypoxia; J86.9 Pyothorax without fistula; E87.1 Hypo-osmolality and hyponatremia; J91.8 Pleural effusion in other conditions classified elsewhere; E78.00 Pure hypercholesterolemia, unspecified; E78.5 Hyperlipidemia, unspecified; E11.9 Type 2 diabetes mellitus without complications; Z20.822 Contact with and (suspected) exposure to COVID-19; J98.01 Acute bronchospasm; Z90.49 Acquired absence of other specified parts of digestive tract; Z91.14 Patient's other noncompliance with medication regimen; Z87.891 Personal history of nicotine dependence
CPT/HCPCS: 36415; 71045; 71250-TC; 76376; 76604; 80048; 80053; 80061; 81000; 82962; 83036; 83735; 83880; 84484; 85007; 85025; 85027; 85379; 85651-TC; 86480; 86635; 86738; 87040; 87070-TC; 87081; 87205-TC; 87449; 93005; 93306; 94640; 94760; 96374; 96375; 99285; G0378; J0456; J0696; J1030; J1815; J1956; J2020; J2270; J2405; J2543; J3370; J7050